=== PATIENT | male | born 1945 | race Caucasian/White ===

== ENCOUNTER 2019-07-01 18:11 | Emergency (ER) | payer MEDICARE ==
[~2019-07-01] VITALS: Ht 175.3 cm; Wt 88.5 kg
[~2019-07-01 18:11] MED LIST: ALLO300 PO; ATEN25 PO; Aspirin EC81 MG PO; LOSA50 PO
[2019-07-01 18:54] LABS: BASOPHILS ABSOLUTE AUTO 0.07 K/mm3 (0.00-0.23); BASOPHILS PERCENT AUTO 1 % (0-2); EOSINOPHILS ABSOLUTE AUTO 0.12 K/mm3 (0.00-0.68); EOSINOPHILS PERCENT AUTO 2 % (0-6); Hematocrit 41.7 % (37.0-53.0); Hemoglobin 14.7 g/dL (13.5-17.5); IMMATURE GRAN ABSOLUTE AUTO 0.01 K/mm3 (0.00-0.10); IMMATURE GRAN PERCENT AUTO 0 % (0-1); LYMPHOCYTES PERCENT AUTO 20 % (21-46); MONOCYTES ABSOLUTE AUTO 0.47 K/mm3 (0.16-1.47); MONOCYTES PERCENT AUTO 9 % (4-13); Mean Corpuscular HGB 38.1 pg (26.0-34.0); Mean Corpuscular HGB Conc 35.3 g/dL (31.5-36.5); Mean Corpuscular Volume 108 fL (80-100); Mean Platelet Volume 9.6 fL (9.1-12.4); NEUTROPHILS ABSOLUTE AUTO 3.79 K/mm3 (1.96-9.15); NEUTROPHILS PERCENT AUTO 68 % (41-73); RDW Coefficient Variation 12.2 % (11.7-14.2); RDW Standard Deviation 48.4 fL (35.1-46.3); Red Blood Cell Count 3.86 M/mm3 (4.30-5.90); White Blood Cell Count 5.56 K/mm3 (4.00-11.30)
[2019-07-01 18:57] LABS: Platelet Count 86 K/mm3 (150-400)
[2019-07-01 19:14] LABS: Troponin I <0.015 ng/mL (0.000-0.040)
[2019-07-01 19:22] LABS: Alanine Aminotransfer (ALT/SGP 76 U/L (12-78); Albumin, Blood 3.1 g/dL (3.4-5.0); Albumin/Globulin Ratio 0.8 (0.8-1.8); Alk Phos 172 U/L (50-136); Anion Gap 9 mmol/L (6-16); Aspartate Aminotrans (AST/SGOT 205 U/L (12-37); Blood Urea Nitrogen 9 mg/dL (8-24); Bun/Creatinine Ratio 11.8 (12.0-20.0); CO2, Blood 26 mmol/L (21-32); Chloride, Blood 100 mmol/L (98-108); Creatinine, Blood 0.76 mg/dL (0.60-1.20); Globulin, Blood 3.8 g/dL (2.2-4.0); Glomerular Filtration Rate >60 (60-); Glucose, Blood 93 mg/dL (70-99); Potassium, Blood 3.7 mmol/L (3.5-5.5); Sodium, Blood 135 mmol/L (136-145); Total Protein, Blood 6.9 g/dL (6.4-8.2)
[2019-07-01] MEDS ORDERED: PRINIVIL10 MG PO (19:50)
[2019-07-01] MEDS ORDERED: ATEN25 (20:24)
[2019-07-01 23:10] LABS: Glutamyl Transpeptidase, GGT 865 U/L (15-85)
[2019-07-02 01:05] LABS: International Normalized Ratio 1.41; Prothrombin Time Results 14.5 Sec (9.7-11.5)
== END 2019-07-02 01:29 | disposition other institution (70) ==
LOC: ER 18:11
PROVIDERS: Emergency Medicine; Physician Assistant
DX: E80.6 Other disorders of bilirubin metabolism (principal); Z79.899 Other long term (current) drug therapy; Z79.82 Long term (current) use of aspirin; I10 Essential (primary) hypertension
CPT/HCPCS: 36415; 74177; 76705; 80053; 82977; 83690; 84484; 85025; 85610; 85730; 96374; 99285-25; J3010; J7030; Q9967

== ENCOUNTER 2019-10-30 13:43 | Day surgery (SDC) | payer MEDICARE ==
[~2019-10-30 13:43] MED LIST changes: +ATEN25; +PRINIVIL10 MG PO
== END 2019-10-30 23:24 | disposition home or self-care (01) ==
LOC: US 13:43
DX: K74.60 Unspecified cirrhosis of liver (principal); R18.8 Other ascites

== ENCOUNTER 2020-01-27 10:09 | Day surgery (SDC) | payer MEDICARE ==
[~2020-01-27] VITALS: Ht 175.3 cm; Wt 86.8 kg
[~2020-01-27 10:09] MED LIST changes: +Calcium Magnes1 EACH PO; +FOLI1 PO; +PYRI100 PO
--- NOTE | 2020-01-27 17:07 | NUR ---
DISCHARGE INSTRUCTIONS GONE OVER WITH PT, PT VERBALIZES UNDERSTANDING OF INSTRUCTIONS. SALINE LOCK OUT WITH CATHETER INTACT. WAITING AT THIS TIOME FOR RIDE. PT DRESSING SELF WITHOUT DIFICULTY.
--- NOTE | 2020-01-27 17:19 | NUR ---
PT DISCHARGE PER W/C WITH ONE STAFF. SITE RIGHT NECK STABLE.
== END 2020-01-27 22:42 | disposition home or self-care (01) ==
LOC: MHTC 10:09
DX: K74.0 Hepatic fibrosis (principal); K74.60 Unspecified cirrhosis of liver; R18.8 Other ascites
CPT/HCPCS: 76937; 99152; 99153; C1769; C1894; J1644; J2250; J3010; J7030; Q9967

== ENCOUNTER 2020-07-01 06:10 | Day surgery (SDC) | payer MEDICARE ==
[~2020-07-01] VITALS: Ht 172.7 cm; Wt 89.2 kg
[~2020-07-01 06:10] MED LIST changes: +GABA300 PO; +LOSA25 PO; +MELA3 PO; +MELO7.5 PO; +MULTI-VITAMIN1 EAC2 PO
[2020-07-01] MEDS ORDERED: OMEP20ER PO (06:49)
--- NOTE | 2020-07-01 10:07 | NUR ---
Discharge instructions reviewed with patient. Patient verbalizes understanding. Copy given to patient to take home. at bedside. DRG C/D/I TO RIGHT GROIN. STATES HE HAS ICE PACKS HE WILL USE AT HOME AND A HERNIA BELT. PT VOIDED PRIOR TO DC HOME. Discharged via wheelchair to private car for ride home.
== END 2020-07-01 22:57 | disposition home or self-care (01) ==
LOC: ORSCMMR 06:10 → ORD 07:30 → ORSCMMR 07:30
PROVIDERS: Surgery
PROC: 0YU50JZ Supplement Right Inguinal Region with Synthetic Substitute, Open Approach (ICD-10-PCS; principal; 2020-07-01 07:30)
DX: K40.90 Unilateral inguinal hernia, without obstruction or gangrene, not specified as recurrent (principal); I10 Essential (primary) hypertension; E78.5 Hyperlipidemia, unspecified; I73.9 Peripheral vascular disease, unspecified; D69.6 Thrombocytopenia, unspecified; K70.9 Alcoholic liver disease, unspecified; E78.00 Pure hypercholesterolemia, unspecified; Z79.82 Long term (current) use of aspirin; Z79.899 Other long term (current) drug therapy
CPT/HCPCS: C1781; J0461; J0690; J1100; J2250; J2370; J2405; J2704; J3010; J7120

== ENCOUNTER 2021-09-27 09:58 | Day surgery (SDC) | payer OTHER ==
[~2021-09-27] VITALS: Ht 175.3 cm; Wt 98.0 kg
[~2021-09-27 09:58] MED LIST changes: +CALCIUM 250-D1 EAC1 PO; -Calcium Magnes1 EACH PO; +OMEP20ER PO
[2021-09-27] MEDS ORDERED: MAGNESIUM GLU27.5 MG PO (10:30)
[2021-09-27] MEDS ORDERED: B-1100 M1 PO (10:32)
[2021-09-27] MEDS ORDERED: CENTRUM SILVER1 EAC2 PO (10:32)
[2021-09-27] MEDS ORDERED: TRAM50 PO (10:32)
[2021-09-27 10:34] LABS: BASOPHILS ABSOLUTE AUTO 0.05 K/mm3 (0.00-0.23); BASOPHILS PERCENT AUTO 1 % (0-2); EOSINOPHILS ABSOLUTE AUTO 0.14 K/mm3 (0.00-0.68); EOSINOPHILS PERCENT AUTO 3 % (0-6); Hematocrit 39.7 % (37.0-53.0); Hemoglobin 14.6 g/dL (13.5-17.5); IMMATURE GRAN ABSOLUTE AUTO 0.02 K/mm3 (0.00-0.10); IMMATURE GRAN PERCENT AUTO 0 % (0-1); LYMPHOCYTES PERCENT AUTO 26 % (21-46); MONOCYTES ABSOLUTE AUTO 0.59 K/mm3 (0.16-1.47); MONOCYTES PERCENT AUTO 12 % (4-13); Mean Corpuscular HGB 37.1 pg (26.0-34.0); Mean Corpuscular HGB Conc 36.8 g/dL (31.5-36.5); Mean Corpuscular Volume 101 fL (80-100); NEUTROPHILS ABSOLUTE AUTO 2.95 K/mm3 (1.96-9.15); NEUTROPHILS PERCENT AUTO 58 % (41-73); Platelet Count 96 K/mm3 (150-400); RDW Coefficient Variation 13.2 % (11.7-14.2); RDW Standard Deviation 48.2 fL (35.1-46.3); Red Blood Cell Count 3.94 M/mm3 (4.30-5.90); White Blood Cell Count 5.05 K/mm3 (4.00-11.30)
[2021-09-27 10:44] LABS: International Normalized Ratio 1.15
[2021-09-27 10:55] LABS: Anion Gap 5 mmol/L (6-16); Blood Urea Nitrogen 15 mg/dL (8-24); Bun/Creatinine Ratio 16.5 (12.0-20.0); CO2, Blood 28 mmol/L (21-32); Calcium, Blood 8.8 mg/dL (8.5-10.1); Chloride, Blood 107 mmol/L (98-108); Creatinine, Blood 0.91 mg/dL (0.60-1.20); Glomerular Filtration Rate >60 (60-); Glucose, Blood 99 mg/dL (70-99); Potassium, Blood 3.9 mmol/L (3.5-5.5); Sodium, Blood 140 mmol/L (136-145)
--- NOTE | 2021-09-27 15:16 | NUR ---
PT TR BAND FULLY DEFLATED. NO BLEEDING OR HEMATOMA NOTED. VSS. NADN. PT VERBALIZES UNDERSTANDING WRITTEN AND VERBAL INSTRUCTIONS.
--- NOTE | 2021-09-27 15:47 | NUR ---
PT TR BAND REMOVED. DOT DRESSING APPLIED W/ SPLINT. SITE REMAINS CLEAR. PT IV DC'D. CATH INTACT. PT AMBULATES TO AND FROM RESTROOM WITHOUT DIFF. PT DRESSES SELF WITHOUT DIFF. PT WILL DC TO HOME VIA S/O BY WC
== END 2021-09-27 15:55 | disposition home or self-care (01) ==
LOC: MHTC 09:58
PROVIDERS: Internal Medicine Interventional Cardiology
DX: I25.118 Atherosclerotic heart disease of native coronary artery with other forms of angina pectoris (principal); I25.82 Chronic total occlusion of coronary artery; I11.9 Hypertensive heart disease without heart failure; E78.5 Hyperlipidemia, unspecified; E66.9 Obesity, unspecified; Z68.31 Body mass index [BMI] 31.0-31.9, adult
CPT/HCPCS: 76937; 80048; 85025; 85610; 93458; 99152; 99153; A9270; C1769; C1887; C1894; J1644; J2250; J3010; J7030; J7050; Q9967

== ENCOUNTER 2021-11-18 23:30 | Observation (INO) | payer OTHER ==
[~2021-11-18] VITALS: Ht 175.3 cm; Wt 95.5 kg
[~2021-11-18 23:30] MED LIST changes: +B-1100 M1 PO; +CENTRUM SILVER1 EAC2 PO; +MAGNESIUM GLU27.5 MG PO; +TRAM50 PO
[2021-11-19 00:08] LABS: BASOPHILS ABSOLUTE AUTO 0.04 K/mm3 (0.00-0.23); BASOPHILS PERCENT AUTO 1 % (0-2); EOSINOPHILS ABSOLUTE AUTO 0.16 K/mm3 (0.00-0.68); EOSINOPHILS PERCENT AUTO 4 % (0-6); Hematocrit 37.2 % (37.0-53.0); Hemoglobin 13.7 g/dL (13.5-17.5); IMMATURE GRAN ABSOLUTE AUTO 0.01 K/mm3 (0.00-0.10); IMMATURE GRAN PERCENT AUTO 0 % (0-1); LYMPHOCYTES ABSOLUTE AUTO 1.22 K/mm3 (0.84-5.20); LYMPHOCYTES PERCENT AUTO 29 % (21-46); MONOCYTES ABSOLUTE AUTO 0.38 K/mm3 (0.16-1.47); MONOCYTES PERCENT AUTO 9 % (4-13); Mean Corpuscular HGB 36.8 pg (26.0-34.0); Mean Corpuscular HGB Conc 36.8 g/dL (31.5-36.5); Mean Corpuscular Volume 100 fL (80-100); Mean Platelet Volume 10.1 fL (9.1-12.4); NEUTROPHILS ABSOLUTE AUTO 2.45 K/mm3 (1.96-9.15); NEUTROPHILS PERCENT AUTO 58 % (41-73); Platelet Count 69 K/mm3 (150-400); RDW Coefficient Variation 12.6 % (11.7-14.2); RDW Standard Deviation 45.6 fL (35.1-46.3); Red Blood Cell Count 3.72 M/mm3 (4.30-5.90); White Blood Cell Count 4.26 K/mm3 (4.00-11.30)
[2021-11-19 00:19] LABS: Alanine Aminotransfer (ALT/SGP 38 U/L (12-78); Albumin, Blood 3.2 g/dL (3.4-5.0); Alk Phos 91 U/L (50-136); Anion Gap 7 mmol/L (6-16); Aspartate Aminotrans (AST/SGOT 56 U/L (12-37); Bilirubin, Total 1.1 mg/dL (0.1-1.0); Blood Urea Nitrogen 10 mg/dL (8-24); Bun/Creatinine Ratio 13.7 (12.0-20.0); CO2, Blood 25 mmol/L (21-32); Calcium, Blood 8.6 mg/dL (8.5-10.1); Chloride, Blood 109 mmol/L (98-108); Creatinine, Blood 0.73 mg/dL (0.60-1.20); Globulin, Blood 3.2 g/dL (2.2-4.0); Glomerular Filtration Rate >60 (60-); Glucose, Blood 116 mg/dL (70-99); Potassium, Blood 4.1 mmol/L (3.5-5.5); Sodium, Blood 141 mmol/L (136-145); Total Protein, Blood 6.4 g/dL (6.4-8.2)
[2021-11-19 03:13] LABS: CHOL/HDL RATIO 1.5; Cholesterol 94 mg/dL (50-200); HDL Cholesterol 62 mg/dL (>39); LDL/HDL RATIO 0.4; Low Density Lipoprotein Chol 24 mg/dL (0-110); Triglycerides 39 mg/dL (30-160); Very Low Density Lipoprot Chol 7 mg/dL (6-32)
[2021-11-19 04:36] LABS: BASOPHILS ABSOLUTE AUTO 0.03 K/mm3 (0.00-0.23); BASOPHILS PERCENT AUTO 1 % (0-2); EOSINOPHILS ABSOLUTE AUTO 0.11 K/mm3 (0.00-0.68); EOSINOPHILS PERCENT AUTO 3 % (0-6); Hematocrit 35.1 % (37.0-53.0); Hemoglobin 12.6 g/dL (13.5-17.5); IMMATURE GRAN ABSOLUTE AUTO 0.01 K/mm3 (0.00-0.10); IMMATURE GRAN PERCENT AUTO 0 % (0-1); LYMPHOCYTES ABSOLUTE AUTO 1.06 K/mm3 (0.84-5.20); LYMPHOCYTES PERCENT AUTO 27 % (21-46); MONOCYTES ABSOLUTE AUTO 0.35 K/mm3 (0.16-1.47); MONOCYTES PERCENT AUTO 9 % (4-13); Mean Corpuscular HGB Conc 35.9 g/dL (31.5-36.5); Mean Corpuscular Volume 100 fL (80-100); Mean Platelet Volume 8.6 fL (9.1-12.4); NEUTROPHILS ABSOLUTE AUTO 2.44 K/mm3 (1.96-9.15); NEUTROPHILS PERCENT AUTO 61 % (41-73); Platelet Count 74 K/mm3 (150-400); RDW Coefficient Variation 12.8 % (11.7-14.2); RDW Standard Deviation 46.5 fL (35.1-46.3)
[2021-11-19 04:51] LABS: Anion Gap 5 mmol/L (6-16); Blood Urea Nitrogen 10 mg/dL (8-24); Bun/Creatinine Ratio 12.8 (12.0-20.0); CO2, Blood 28 mmol/L (21-32); Calcium, Blood 8.6 mg/dL (8.5-10.1); Chloride, Blood 110 mmol/L (98-108); Creatinine, Blood 0.78 mg/dL (0.60-1.20); Glomerular Filtration Rate >60 (60-); Glucose, Blood 105 mg/dL (70-99); Sodium, Blood 143 mmol/L (136-145)
--- NOTE | 2021-11-19 06:42 | NUR ---
ASSUMED CARE OF PATIENT UPON TRANSFER FROM THE ER TO PCU 10 AT APPROXIMATELY 0340. PT CAME TO ER FROM HOME VIA EMS AFTER SUDDEN ONSET OF CHEST PAIN THAT WAS, THE PATIENT DESCRIBED, DIFFERENT FROM PREVIOUS EPISODES OF CHEST PAIN. HE DESCRIBES THE PAIN A PAINFUL PULSATING PAIN ON BOTH SIDES OF HIS NECK. PT DOES HAVE INTERMITTENT CHEST PAIN AND USES A NITROGLYCERIN PATCH AT HOME PRN. PT IS SCHEDULED FOR CORONARY ARTERY BYPASS GRAFTING (CABG) AT [facility] IN [place] IN 10 DAYS. UPON PRESENTATION TO THE ER, THE CHEST PAIN WHICH HE RATED 7/10 HAD RESOLVED. PT DID ENDORSE A COUPLE OF RECURRENT EPISODES OF THIS CHEST PAIN WHILE IN THE ER, AND THEN AGAIN AROUND 0525 AFTER AMBULATING TO AND FROM THE BATHROOM. THE PT DESCRIBED THE PAIN THE SAME PAINFUL FULSATING PAIN TO BOTH SIDES OF HIS NECK THAT SPURRED HIM TO CALL EMS. SERIAL TROPONINS ARE TRENDING UPWARD: FROM 21, TO 198 TO 382. MD GARCIA ADVISED OF CRITICAL TROPONIN AND A HEPARIN DRIP WAS INITIATED. HEPARIN DRIP IS INFUSING AND PT DENIES ANY CHEST PAIN AT THIS TIME. WILL CONTINUE TO MONITOR.
--- NOTE | 2021-11-19 09:37 | NUR ---
THIS MORING PT ENDORSED INTERMITTENT PULSATING PAIN IN UPPER CLAVICULAR REGION RADIATING TO THE NECK, 7/10 PAIN, ALSO MARKEDLY HYPERTENSIVE. DISCUSSED WITH DR. DANIEL WHO WILL TRANSFER PATIENT TO ICU FOR NITRO DRIP. DISCUSSED PATIENT'S UPCOMING CARDIAC PROCEDURE IN [place] WITH DR. DANIEL, WHO WILL REACH OUT TO OTHER FACILITY REGARDING TRANSFER. PT UPDATED ON PLAN OF CARE, QUESTIONS ANSWERED TO SATISFACTION.
--- NOTE | 2021-11-19 09:41 | NUR ---
REPORT GIVEN TO ROE DE LA O IN ICU.
--- NOTE | 2021-11-19 10:01 | NUR ---
PT TRANSFERED FROM U 10 AT 0945. PT IS A/O X4. DENIES CP OR PRESSURE, DENIES N/V AND SOB. ON RA. LS CLEAR. HR SR IN THE 60'S WITH MURMUR HEARD. HEPARIN GTT RUNNING. RN PLACING SECOND IV NOW TO START NITRO GTT. BP IS SLIGHTLY IMPROVED AT THE MOMENT. NO SIGN OF DISTRESS. CALL LIGHT IN REACH, PT INSTRUCTED TO NOT GET OOB DUE TO HAVING HX OF CP AND HYPERTENSIVE THIS AM. URINAL PLACED AT BEDSIDE. DR. DANIEL IS WORKING ON TRYING TO GET PT TRANSFERED TO [facility] FOR CABG. PT STATES HE WAS SCHEDULED FOR CABG IN 10 DAYS.
--- NOTE | 2021-11-19 13:32 | NUR ---
PT TRANSFERED TO [facility] VIA [facility]. PT IS A/O X4 AND DENIES CP OR PRESSURE, SOB, AND N/V BEFORE LEAVING. NITRO WAS NEVER STARTED DUE TO NO CP AND BP HAD IMPROVED. REPORT WAS GIVEN TO KASH DE LA O AT [facility]. NO SIGN OF DISTRESS HE LEAVES FACILITY.
== END 2021-11-19 13:14 | disposition short-term general hospital (02) ==
LOC: ER 23:30 → PCU 23:31 → ICUE 11-19 09:45
PROVIDERS: Student in an Organized Health Care Education/Training Program; ADMIT Family Medicine
DX: R07.89 Other chest pain (principal); R01.1 Cardiac murmur, unspecified; I25.10 Atherosclerotic heart disease of native coronary artery without angina pectoris; I10 Essential (primary) hypertension; M10.9 Gout, unspecified; D69.6 Thrombocytopenia, unspecified; Z96.642 Presence of left artificial hip joint; Z87.442 Personal history of urinary calculi; Z87.19 Personal history of other diseases of the digestive system
CPT/HCPCS: 36415; 71045; 80048; 80053; 80061; 84484; 85025; 85730; 93005; 93010; 93306; 96374; 99285-25; A9270; C1751; G0378; J1644

== ENCOUNTER 2022-02-06 18:31 | Emergency (ER) | payer OTHER ==
[~2022-02-06] VITALS: Ht 175.3 cm; Wt 93.0 kg
[2022-02-06] MEDS ORDERED: CYCL10 PO (20:10)
== END 2022-02-06 20:22 | disposition home or self-care (01) ==
LOC: ER 18:31
DX: S01.01XA Laceration without foreign body of scalp, initial encounter (principal); M54.50 Low back pain, unspecified; M25.551 Pain in right hip; I10 Essential (primary) hypertension; Z79.899 Other long term (current) drug therapy; Z79.82 Long term (current) use of aspirin; W22.8XXA Striking against or struck by other objects, initial encounter; Y92.9 Unspecified place or not applicable
CPT/HCPCS: 70450; 72100; A9270

== ENCOUNTER 2022-03-13 08:38 | Day surgery (SDC) | payer OTHER ==
[~2022-03-13] VITALS: Ht 175.3 cm; Wt 91.8 kg
[~2022-03-13 08:38] MED LIST changes: +CYCL10 PO
== END 2022-03-13 10:32 | disposition home or self-care (01) ==
LOC: ORSCSDS 08:38
PROVIDERS: Student in an Organized Health Care Education/Training Program
PROC: 0DB68ZX Excision of Stomach, Via Natural or Artificial Opening Endoscopic, Diagnostic (ICD-10-PCS; principal; 2022-03-13 10:00)
DX: K70.30 Alcoholic cirrhosis of liver without ascites (principal); Z87.11 Personal history of peptic ulcer disease; I86.4 Gastric varices; K21.9 Gastro-esophageal reflux disease without esophagitis; I10 Essential (primary) hypertension; I25.10 Atherosclerotic heart disease of native coronary artery without angina pectoris; I25.2 Old myocardial infarction; D69.6 Thrombocytopenia, unspecified; Z86.73 Personal history of transient ischemic attack (TIA), and cerebral infarction without residual deficits; K76.6 Portal hypertension; K31.89 Other diseases of stomach and duodenum; Z79.82 Long term (current) use of aspirin; Z79.899 Other long term (current) drug therapy
CPT/HCPCS: 88305; 88342; J2704

== ENCOUNTER 2022-05-18 11:39 | Emergency (ER) | payer OTHER ==
[~2022-05-18] VITALS: Ht 175.3 cm; Wt 93.0 kg
[2022-05-18 14:36] LABS: BASOPHILS ABSOLUTE AUTO 0.03 K/mm3 (0.00-0.23); BASOPHILS PERCENT AUTO 1 % (0-2); EOSINOPHILS ABSOLUTE AUTO 0.07 K/mm3 (0.00-0.68); EOSINOPHILS PERCENT AUTO 2 % (0-6); Hematocrit 37.3 % (37.0-53.0); Hemoglobin 13.9 g/dL (13.5-17.5); IMMATURE GRAN ABSOLUTE AUTO 0.01 K/mm3 (0.00-0.10); IMMATURE GRAN PERCENT AUTO 0 % (0-1); LYMPHOCYTES ABSOLUTE AUTO 0.84 K/mm3 (0.84-5.20); LYMPHOCYTES PERCENT AUTO 24 % (21-46); MONOCYTES ABSOLUTE AUTO 0.47 K/mm3 (0.16-1.47); MONOCYTES PERCENT AUTO 13 % (4-13); Mean Corpuscular HGB 37.1 pg (26.0-34.0); Mean Corpuscular HGB Conc 37.3 g/dL (31.5-36.5); Mean Corpuscular Volume 100 fL (80-100); Mean Platelet Volume 9.3 fL (9.1-12.4); NEUTROPHILS ABSOLUTE AUTO 2.15 K/mm3 (1.96-9.15); NEUTROPHILS PERCENT AUTO 60 % (41-73); Platelet Count 91 K/mm3 (150-400); RDW Coefficient Variation 13.6 % (11.7-14.2); Red Blood Cell Count 3.75 M/mm3 (4.30-5.90); White Blood Cell Count 3.57 K/mm3 (4.00-11.30)
[2022-05-18] MEDS ORDERED: ATOR20 PO (14:48)
[2022-05-18] MEDS ORDERED: CARV3.125 PO (14:49)
[2022-05-18] MEDS ORDERED: METO50 PO (14:50)
[2022-05-18] MEDS ORDERED: MAGNESIUM250 MG PO (14:50)
[2022-05-18] MEDS ORDERED: PANT40 PO (14:51)
[2022-05-18 14:57] LABS: Albumin, Blood 3.1 g/dL (3.4-5.0); Bilirubin, Total 1.9 mg/dL (0.1-1.0); Bun/Creatinine Ratio 13.1 (12.0-20.0); Calcium, Blood 8.8 mg/dL (8.5-10.1); Creatinine, Blood 0.76 mg/dL (0.60-1.20); Globulin, Blood 3.1 g/dL (2.2-4.0); Potassium, Blood 4.6 mmol/L (3.5-5.5); Total Protein, Blood 6.2 g/dL (6.4-8.2)
== END 2022-05-18 16:03 | disposition home or self-care (01) ==
LOC: ER 11:39
PROVIDERS: Emergency Medicine
DX: R07.9 Chest pain, unspecified (principal); I10 Essential (primary) hypertension; Z79.899 Other long term (current) drug therapy; Z79.82 Long term (current) use of aspirin
CPT/HCPCS: 36415; 71045; 80053; 84484; 85025; 93005; 93010; 93880

== ENCOUNTER 2022-10-19 14:53 | Emergency (ER) | payer OTHER ==
[~2022-10-19] VITALS: Ht 175.3 cm; Wt 93.0 kg
[~2022-10-19 14:53] MED LIST changes: +ATOR20 PO; +CARV3.125 PO; +MAGNESIUM250 MG PO; +METO50 PO; +PANT40 PO
[2022-10-19 16:03] LABS: Albumin, Blood 3.5 g/dL (3.4-5.0); Albumin/Globulin Ratio 1.1 (0.8-1.8); Bilirubin, Total 2.6 mg/dL (0.1-1.0); Bun/Creatinine Ratio 12.6 (12.0-20.0); Calcium, Blood 8.9 mg/dL (8.5-10.1); Creatinine, Blood 0.72 mg/dL (0.60-1.20); Globulin, Blood 3.1 g/dL (2.2-4.0); Potassium, Blood 3.9 mmol/L (3.5-5.5); Total Protein, Blood 6.6 g/dL (6.4-8.2)
[2022-10-19 16:16] LABS: BASOPHILS ABSOLUTE AUTO 0.03 K/mm3 (0.00-0.23); BASOPHILS PERCENT AUTO 1 % (0-2); EOSINOPHILS ABSOLUTE AUTO 0.07 K/mm3 (0.00-0.68); EOSINOPHILS PERCENT AUTO 1 % (0-6); Hematocrit 40.3 % (37.0-53.0); IMMATURE GRAN ABSOLUTE AUTO 0.01 K/mm3 (0.00-0.10); IMMATURE GRAN PERCENT AUTO 0 % (0-1); LYMPHOCYTES ABSOLUTE AUTO 0.89 K/mm3 (0.84-5.20); LYMPHOCYTES PERCENT AUTO 17 % (21-46); MONOCYTES ABSOLUTE AUTO 0.49 K/mm3 (0.16-1.47); MONOCYTES PERCENT AUTO 9 % (4-13); Mean Corpuscular Volume 100 fL (80-100); Mean Platelet Volume 9.9 fL (9.1-12.4); NEUTROPHILS ABSOLUTE AUTO 3.75 K/mm3 (1.96-9.15); NEUTROPHILS PERCENT AUTO 72 % (41-73); Platelet Count 85 K/mm3 (150-400); RDW Coefficient Variation 12.5 % (11.7-14.2); RDW Standard Deviation 45.9 fL (35.1-46.3); Red Blood Cell Count 4.05 M/mm3 (4.30-5.90); White Blood Cell Count 5.24 K/mm3 (4.00-11.30)
[2022-10-19 16:20] LABS: Mean Corpuscular HGB Conc 37.2 g/dL (31.5-36.5)
[2022-10-19] MEDS ORDERED: PANT20 PO (20:37)
== END 2022-10-19 20:57 | disposition home or self-care (01) ==
LOC: ER 14:53
PROVIDERS: Student in an Organized Health Care Education/Training Program
DX: K29.70 Gastritis, unspecified, without bleeding (principal); I10 Essential (primary) hypertension; Z79.899 Other long term (current) drug therapy; Z79.82 Long term (current) use of aspirin; Z95.1 Presence of aortocoronary bypass graft
CPT/HCPCS: 36415; 80053; 83690; 84484; 85025; A9270

== ENCOUNTER 2023-01-30 11:33 | Emergency (ER) | payer OTHER ==
[~2023-01-30] VITALS: Ht 175.3 cm; Wt 91.6 kg
[~2023-01-30 11:33] MED LIST changes: +PANT20 PO
[2023-01-30 11:40] VITALS: BP 190/94
[2023-01-30 12:10] LABS: BASOPHILS ABSOLUTE AUTO 0.06 K/mm3 (0.00-0.23); BASOPHILS PERCENT AUTO 1 % (0-2); EOSINOPHILS ABSOLUTE AUTO 0.05 K/mm3 (0.00-0.68); EOSINOPHILS PERCENT AUTO 1 % (0-6); Hematocrit 42.6 % (37.0-53.0); Hemoglobin 15.4 g/dL (13.5-17.5); IMMATURE GRAN ABSOLUTE AUTO 0.01 K/mm3 (0.00-0.10); IMMATURE GRAN PERCENT AUTO 0 % (0-1); LYMPHOCYTES PERCENT AUTO 18 % (21-46); MONOCYTES PERCENT AUTO 7 % (4-13); Mean Corpuscular HGB 35.6 pg (26.0-34.0); Mean Corpuscular HGB Conc 36.2 g/dL (31.5-36.5); Mean Corpuscular Volume 98 fL (80-100); Mean Platelet Volume 9.9 fL (9.1-12.4); NEUTROPHILS ABSOLUTE AUTO 3.94 K/mm3 (1.96-9.15); NEUTROPHILS PERCENT AUTO 72 % (41-73); Platelet Count 118 K/mm3 (150-400); RDW Coefficient Variation 13.2 % (11.7-14.2); RDW Standard Deviation 47.9 fL (35.1-46.3); Red Blood Cell Count 4.33 M/mm3 (4.30-5.90); White Blood Cell Count 5.46 K/mm3 (4.00-11.30)
[2023-01-30 12:42] LABS: Source, Urine Clean Catch
[2023-01-30 12:43] LABS: Albumin, Blood 3.6 g/dL (3.4-5.0); Albumin/Globulin Ratio 1.2 (0.8-1.8); Bilirubin, Total 2.6 mg/dL (0.1-1.0); Bun/Creatinine Ratio 15.5 (12.0-20.0); Calcium, Blood 9.3 mg/dL (8.5-10.1); Creatinine, Blood 0.78 mg/dL (0.60-1.20); Globulin, Blood 3.1 g/dL (2.2-4.0); Potassium, Blood 4.2 mmol/L (3.5-5.5); Total Protein, Blood 6.7 g/dL (6.4-8.2)
[2023-01-30 13:01] LABS: Appearance, Urine Clear (Clear); Bilirubin, Urine Neg (Neg); Blood, Urine Neg (Neg); Color, Urine Yellow (P-Yellow); Glucose Qualitative, Urine Neg (Neg); Ketones, Urine 3+ (Neg); Leukocyte Esterase, Urine Neg (Neg); Nitrite, Urine Neg (Neg); Protein, Urine 2+ (Neg); Urobilinogen, Urine 2+ (Normal)
[2023-01-30 13:54] LABS: Bacteria Not Seen /hpf; Mucus Light (0-Heavy); Red Blood Cells, Urine Not Seen /hpf (0-2); Squamous Epithelial Cells Rare /hpf (Few); White Blood Cells, Urine 0-2 /hpf (0-5)
== END 2023-01-30 13:20 | disposition home or self-care (01) ==
LOC: ER 11:33
PROVIDERS: Physician Assistant
DX: R79.9 Abnormal finding of blood chemistry, unspecified (principal); I10 Essential (primary) hypertension; Z79.899 Other long term (current) drug therapy; Z79.82 Long term (current) use of aspirin; Z96.642 Presence of left artificial hip joint; Z95.1 Presence of aortocoronary bypass graft
CPT/HCPCS: 80053; 81001; 85025